=== PATIENT | male | born 1985 | race Caucasian/White ===

== ENCOUNTER 2021-02-25 10:39 | Inpatient (IN) | payer BC ==
[~2021-02-25] VITALS: Ht 180.3 cm; Wt 90.0 kg
[2021-02-25 12:45] LABS: CLARITY,URINE SLIGHTLY CLOUDY (Clear); COLOR,URINE AMBER (Yellow); GLUCOSE, URINE NEGATIVE (Neg); KETONES,URINE TRACE mg/dl (Neg); LEUKOCYTE ESTERASE ,URINE NEGATIVE (Neg); NITRITES, URINE NEGATIVE (Neg); OCCULT BLOOD,URINE NEGATIVE (Neg); PH,URINE 6.5 (4.8-8.0); PROTEIN,URINE 100 mg/dl (Neg)
[2021-02-25 12:46] LABS: BASOPHILS % (AUTO) 0.3 % (0-1); D-DIMER 1.18 MG/L FEU (0-0.50); EOSINOPHILS % (AUTO) 0.5 % (0-6); HEMATOCRIT 45.4 % (42.0-52.0); HEMOGLOBIN 15.6 g/dl (14.0-17.9); LYMPHOCYTES # (AUTO) 0.7 X10'3 (1.1-4.8); LYMPHOCYTES % (AUTO) 10.3 % (21-51); MEAN CORPUSCULAR HEMOGLOBIN 29.6 PG (27.0-31.0); MEAN CORPUSCULAR HGB CONC 34.4 g/dL (33.0-36.5); MEAN CORPUSCULAR VOLUME 86.1 FL (78-98); MEAN PLATELET VOLUME 8.9 FL (7.4-10.4); MONOCYTES # (AUTO) 0.6 X10'3 (0-0.9); MONOCYTES % (AUTO) 8.3 % (2-12); NEUTROPHILS # (AUTO) 5.7 X10'3 (1.8-7.7); NEUTROPHILS % (AUTO) 80.6 % (42-75); PLATELET COUNT 193 X10'3 (140-440); RED BLOOD COUNT 5.27 X10'6 (4.70-6.10); RED CELL DISTRIBUTION WIDTH 12.6 % (11.5-14.5); WHITE BLOOD COUNT 7.1 X10'3 (4.5-11.0)
[2021-02-25 12:51] LABS: UA COLLECTION TYPE NON-SPECIFIED
[2021-02-25 12:57] LABS: MUCUS STRANDS MANY /LPF (Neg); SQUAMOUS EPITHELIAL CELL,UR FEW /LPF (FEW)
[2021-02-25 13:00] LABS: BACTERIA,URINE FEW /HPF (Neg); RBC,URINE 0-2 /HPF (0-2); WBC,URINE 0-4 /HPF (0-4)
[2021-02-25] MEDS ORDERED: dexamethasone inj 8 MG in normal saline 50ml IV soln 50 ML IV STA (13:47)
[2021-02-25] MEDS ORDERED: REMDESIVIR INJ 200 MG in normal saline 100ml IV soln 60 ML IV ONE (13:50)
[2021-02-25 13:55] LABS: ALANINE AMINOTRANSFERASE 52 U/L (12-78); ALBUMIN 3.2 G/DL (3.4-5.0); ALBUMIN/GLOBULIN RATIO 0.7 (1.1-1.5); ALKALINE PHOSPHATASE 93 IU/L (46-116); ANION GAP 11 (8-16); ASPARTATE AMINO TRANSFERASE 37 U/L (10-37); BILIRUBIN,TOTAL 0.5 MG/DL (0.1-1.0); BLOOD UREA NITROGEN 9 MG/DL (7-18); BUN/CREATININE RATIO 9.5 (5.4-32.0); C-REACTIVE PROTEIN 4.91 MG/DL (0.0-0.5); CALCIUM 8.5 MG/DL (8.5-10.1); CHLORIDE 99 MMOL/L (99-107); CREATININE 0.95 MG/DL (0.60-1.10); GLUCOSE 98 MG/DL (70-104); MAGNESIUM 2.3 MG/DL (1.5-2.4); POTASSIUM 3.8 MMOL/L (3.5-5.1); SODIUM 137 MMOL/L (135-145); TOTAL CARBON DIOXIDE 27.3 MMOL/L (24-32); TOTAL PROTEIN 7.5 G/DL (6.4-8.2); eGFR 90 ML/MIN
[2021-02-25] MEDS ORDERED: morphine 2 MG/ML inj. syringe IV PRN ×2 (14:40)
[2021-02-25] MEDS ORDERED: ondansetron/PF 4mg/2ml inj IV PRN (14:40)
[2021-02-25] MEDS ORDERED: HYDROcodone/acetaminophen 10/325mg tab PO PRN (14:40)
[2021-02-25] MEDS ORDERED: HYDROcodone/acetaminophen 5mg/325mg tablet PO PRN (14:40)
[2021-02-25] MEDS ORDERED: mag hydrox/Alum hydrox/simeth 30ml oral suspension PO PRN (14:40)
[2021-02-25] MEDS ORDERED: magnesium hydroxide 30ml (MOM) UD suspension PO PRN (14:40)
[2021-02-25] MEDS ORDERED: acetaminophen 325mg tablet PO PRN ×2 (14:40)
[2021-02-25] MEDS ORDERED: NO HOME MEDS (15:42)
[2021-02-25 16:01] LABS: PHOSPHORUS 2.9 MG/DL (2.3-4.5)
[2021-02-25] MEDS ORDERED: REMDESIVIR 200 MG in NS 100ml IVPB Loading dose IV ONE (16:30)
[2021-02-25] MEDS: docusate sod 100mg capsule PO SCH (20:00)
[2021-02-25] MEDS: dexamethasone sod phosphate 10mg/ml inj IV SCH (20:02)
[2021-02-26 00:47] VITALS: BP 131/77
--- NOTE | 2021-02-26 06:18 | NUR ---
Problems reprioritized. Patient report given, questions answered & plan of care reviewed with YESENIA BRICEÑO.
--- NOTE | 2021-02-26 06:43 | NUR ---
Patient in room COVID 08. I have received report from eva ellis and had the opportunity to ask questions and assume patient care.
[2021-02-26 07:00] VITALS: BP 105/69
[2021-02-26] MEDS: docusate sod 100mg capsule PO SCH ×2 (08:00→19:20)
[2021-02-26] MEDS ORDERED: enoxaparin 30mg/0.3ml syringe SUBCUT SCH (08:00)
[2021-02-26] MEDS: REMDESIVIR 100 MG in NS 100ml IVPB IV SCH (09:15)
[2021-02-26] MEDS: dexamethasone sod phosphate 10mg/ml inj IV SCH ×2 (09:16→19:20)
[2021-02-26 09:53] LABS: BASOPHILS % (AUTO) 0.2 % (0-1); EOSINOPHILS % (AUTO) 0 % (0-6); HEMATOCRIT 44.3 % (42.0-52.0); HEMOGLOBIN 15.1 g/dl (14.0-17.9); LYMPHOCYTES # (AUTO) 0.5 X10'3 (1.1-4.8); LYMPHOCYTES % (AUTO) 13.8 % (21-51); MEAN CORPUSCULAR HEMOGLOBIN 29.2 PG (27.0-31.0); MEAN CORPUSCULAR HGB CONC 34.1 g/dL (33.0-36.5); MEAN CORPUSCULAR VOLUME 85.8 FL (78-98); MEAN PLATELET VOLUME 8.9 FL (7.4-10.4); MONOCYTES # (AUTO) 0.4 X10'3 (0-0.9); MONOCYTES % (AUTO) 11.4 % (2-12); NEUTROPHILS # (AUTO) 2.5 X10'3 (1.8-7.7); NEUTROPHILS % (AUTO) 74.6 % (42-75); PLATELET COUNT 233 X10'3 (140-440); RED BLOOD COUNT 5.16 X10'6 (4.70-6.10); RED CELL DISTRIBUTION WIDTH 12.7 % (11.5-14.5); WHITE BLOOD COUNT 3.3 X10'3 (4.5-11.0)
[2021-02-26 10:06] LABS: ALBUMIN 3.1 G/DL (3.4-5.0); ANION GAP 11 (8-16); BLOOD UREA NITROGEN 11 MG/DL (7-18); BUN/CREATININE RATIO 12.8 (5.4-32.0); CALCIUM 8.5 MG/DL (8.5-10.1); CHLORIDE 101 MMOL/L (99-107); CREATININE 0.86 MG/DL (0.60-1.10); GLUCOSE 119 MG/DL (70-104); POTASSIUM 3.8 MMOL/L (3.5-5.1); SODIUM 140 MMOL/L (135-145); eGFR > 90 ML/MIN
[2021-02-26] MEDS: enoxaparin 40mg/0.4ml syringe SUBCUT SCH (10:44)
[2021-02-26] MEDS: azithromycin/NS 500mg/250ml 250 ML IV SCH (15:50)
[2021-02-26 17:00] VITALS: BP 126/84
--- NOTE | 2021-02-26 18:00 | NUR ---
Patient in room COVID 08. I have received report from mushtaq BRICEÑO and had the opportunity to ask questions and assume patient care.
--- NOTE | 2021-02-26 18:53 | NUR ---
patient appeared comfortable no changes to O2 @5L o2 sats 96%. report given to sebastián BRICEÑO
[2021-02-26 20:00] VITALS: BP 106/58
--- NOTE | 2021-02-26 23:32 | NUR ---
oxygen titrated from 5L to 2 L because patient saturates at 97% on 5L. patient saturates comfortably at 95% on 2L via NC. no ss of resp distress noted.
[2021-02-27 02:00] VITALS: BP 100/68
--- NOTE | 2021-02-27 06:51 | NUR ---
Patient in room COVID 08. I have received report from MAGALY BRICEÑO and had the opportunity to ask questions and assume patient care.
[2021-02-27 07:05] VITALS: BP 112/64
[2021-02-27] MEDS: REMDESIVIR 100 MG in NS 100ml IVPB IV SCH (08:01)
[2021-02-27] MEDS: dexamethasone sod phosphate 10mg/ml inj IV SCH ×2 (08:07→19:47)
[2021-02-27 08:14] LABS: ALBUMIN 2.9 G/DL (3.4-5.0); ANION GAP 12 (8-16); BLOOD UREA NITROGEN 15 MG/DL (7-18); BUN/CREATININE RATIO 14.6 (5.4-32.0); CALCIUM 8.4 MG/DL (8.5-10.1); CHLORIDE 103 MMOL/L (99-107); CREATININE 1.03 MG/DL (0.60-1.10); GLUCOSE 156 MG/DL (70-104); POTASSIUM 3.9 MMOL/L (3.5-5.1); SODIUM 142 MMOL/L (135-145); TOTAL CARBON DIOXIDE 27.5 MMOL/L (24-32); eGFR 82 ML/MIN
[2021-02-27 08:17] LABS: BASOPHILS % (AUTO) 0.1 % (0-1); EOSINOPHILS % (AUTO) 0 % (0-6); HEMOGLOBIN 14.5 g/dl (14.0-17.9); LYMPHOCYTES # (AUTO) 0.7 X10'3 (1.1-4.8); LYMPHOCYTES % (AUTO) 8.1 % (21-51); MEAN CORPUSCULAR HEMOGLOBIN 29.3 PG (27.0-31.0); MEAN CORPUSCULAR HGB CONC 33.7 g/dL (33.0-36.5); MEAN CORPUSCULAR VOLUME 87.1 FL (78-98); MEAN PLATELET VOLUME 8.7 FL (7.4-10.4); MONOCYTES # (AUTO) 0.7 X10'3 (0-0.9); MONOCYTES % (AUTO) 7.6 % (2-12); NEUTROPHILS # (AUTO) 7.3 X10'3 (1.8-7.7); NEUTROPHILS % (AUTO) 84.2 % (42-75); PLATELET COUNT 298 X10'3 (140-440); RED BLOOD COUNT 4.93 X10'6 (4.70-6.10); RED CELL DISTRIBUTION WIDTH 12.7 % (11.5-14.5); WHITE BLOOD COUNT 8.7 X10'3 (4.5-11.0)
[2021-02-27] MEDS: docusate sod 100mg capsule PO SCH ×2 (08:17→19:56)
[2021-02-27] MEDS: enoxaparin 40mg/0.4ml syringe SUBCUT SCH (08:50)
[2021-02-27] MEDS: azithromycin/NS 500mg/250ml 250 ML IV SCH (08:51)
[2021-02-27 10:00] VITALS: BP 117/66
[2021-02-27 13:19] LABS: D-DIMER 0.67 MG/L FEU (0-0.50)
[2021-02-27 15:00] VITALS: BP 123/72
[2021-02-27 19:00] VITALS: BP 121/66
[2021-02-27] MEDS: lactobacillus rhamnosus 10,000 MMU CELLS/CAPSULE PO SCH (19:51)
[2021-02-27 22:00] VITALS: BP 102/61
--- NOTE | 2021-02-28 00:06 | NUR ---
patient up ambulating on RA tolerated well. all cares given . Patient using o2/2L overnight o2 sats 96%. Report given to Yolis BRICEÑO
--- NOTE | 2021-02-28 00:15 | NUR ---
Patient in room COVID 08. I have received report from YESENIA and had the opportunity to ask questions and assume patient care.
[2021-02-28 02:00] VITALS: BP 94/48
[2021-02-28 06:00] VITALS: BP 102/50
--- NOTE | 2021-02-28 06:43 | NUR ---
Patient in room COVID 08. I have received report from NAVARRO Mims and had the opportunity to ask questions and assume patient care.
[2021-02-28] MEDS: REMDESIVIR 100 MG in NS 100ml IVPB IV SCH (08:19)
[2021-02-28] MEDS: lactobacillus rhamnosus 10,000 MMU CELLS/CAPSULE PO SCH ×2 (08:19→21:47)
[2021-02-28] MEDS: dexamethasone sod phosphate 10mg/ml inj IV SCH ×2 (08:19→20:00)
[2021-02-28] MEDS: enoxaparin 40mg/0.4ml syringe SUBCUT SCH (08:19)
[2021-02-28] MEDS: docusate sod 100mg capsule PO SCH ×2 (08:19→21:47)
[2021-02-28 09:43] LABS: ANION GAP 8 (8-16); BLOOD UREA NITROGEN 16 MG/DL (7-18); BUN/CREATININE RATIO 16.8 (5.4-32.0); CALCIUM 8.3 MG/DL (8.5-10.1); CHLORIDE 104 MMOL/L (99-107); CREATININE 0.95 MG/DL (0.60-1.10); GLUCOSE 119 MG/DL (70-104); SODIUM 141 MMOL/L (135-145); TOTAL CARBON DIOXIDE 29.2 MMOL/L (24-32); eGFR 90 ML/MIN
[2021-02-28 09:47] LABS: BASOPHILS % (AUTO) 0 % (0-1); EOSINOPHILS % (AUTO) 0 % (0-6); HEMATOCRIT 43.3 % (42.0-52.0); HEMOGLOBIN 14.7 g/dl (14.0-17.9); LYMPHOCYTES # (AUTO) 0.9 X10'3 (1.1-4.8); LYMPHOCYTES % (AUTO) 8.6 % (21-51); MEAN CORPUSCULAR HEMOGLOBIN 29.6 PG (27.0-31.0); MEAN CORPUSCULAR HGB CONC 33.9 g/dL (33.0-36.5); MEAN CORPUSCULAR VOLUME 87.4 FL (78-98); MEAN PLATELET VOLUME 8.8 FL (7.4-10.4); MONOCYTES # (AUTO) 0.7 X10'3 (0-0.9); MONOCYTES % (AUTO) 7.5 % (2-12); NEUTROPHILS # (AUTO) 8.3 X10'3 (1.8-7.7); NEUTROPHILS % (AUTO) 83.9 % (42-75); PLATELET COUNT 338 X10'3 (140-440); RED BLOOD COUNT 4.96 X10'6 (4.70-6.10); RED CELL DISTRIBUTION WIDTH 12.1 % (11.5-14.5); WHITE BLOOD COUNT 9.9 X10'3 (4.5-11.0)
[2021-02-28] MEDS: azithromycin/NS 500mg/250ml 250 ML IV SCH (09:53)
[2021-02-28 10:00] VITALS: BP 107/63
[2021-02-28 14:00] VITALS: BP 124/77
[2021-02-28] MEDS ORDERED: METH4TAB81 PO (14:17)
[2021-02-28] MEDS ORDERED: AZIT500T9 PO (14:17)
--- NOTE | 2021-02-28 18:05 | NUR ---
Pt transported to 402, via wheelchair, with all belongings.
--- NOTE | 2021-02-28 18:37 | NUR ---
Problems reprioritized. Patient report given, questions answered & plan of care reviewed with NAVARRO Gregg.
--- NOTE | 2021-02-28 18:39 | NUR ---
Patient in room COVID 08. I have received report from Keyonna BRICEÑO and had the opportunity to ask questions and assume patient care.
[2021-02-28 20:00] VITALS: BP 128/80
[2021-02-28 22:00] VITALS: BP 124/77
--- NOTE | 2021-03-01 00:22 | NUR ---
Problems reprioritized. Patient report given, questions answered & plan of care reviewed with Kayla BRICEÑO.
--- NOTE | 2021-03-01 00:30 | NUR ---
Assumed care of pt at this time report from Marsyol BRICEÑO.
[2021-03-01 02:00] VITALS: BP 115/71
--- NOTE | 2021-03-01 06:27 | NUR ---
Report to Justyna BRICEÑO.
[2021-03-01 08:00] LABS: BASOPHILS % (AUTO) 0.1 % (0-1); EOSINOPHILS % (AUTO) 0 % (0-6); HEMATOCRIT 44.9 % (42.0-52.0); HEMOGLOBIN 15.2 g/dl (14.0-17.9); LYMPHOCYTES % (AUTO) 8.3 % (21-51); MEAN CORPUSCULAR HEMOGLOBIN 29.1 PG (27.0-31.0); MEAN CORPUSCULAR VOLUME 85.6 FL (78-98); MEAN PLATELET VOLUME 8.5 FL (7.4-10.4); MONOCYTES # (AUTO) 0.9 X10'3 (0-0.9); NEUTROPHILS # (AUTO) 9.7 X10'3 (1.8-7.7); NEUTROPHILS % (AUTO) 83.6 % (42-75); PLATELET COUNT 369 X10'3 (140-440); RED BLOOD COUNT 5.25 X10'6 (4.70-6.10); RED CELL DISTRIBUTION WIDTH 12.6 % (11.5-14.5); WHITE BLOOD COUNT 11.6 X10'3 (4.5-11.0)
[2021-03-01] MEDS: docusate sod 100mg capsule PO SCH (08:00)
[2021-03-01 08:23] LABS: ALBUMIN 3.3 G/DL (3.4-5.0); ANION GAP 9 (8-16); BLOOD UREA NITROGEN 17 MG/DL (7-18); BUN/CREATININE RATIO 18.5 (5.4-32.0); CALCIUM 8.7 MG/DL (8.5-10.1); CHLORIDE 105 MMOL/L (99-107); CREATININE 0.92 MG/DL (0.60-1.10); GLUCOSE 115 MG/DL (70-104); SODIUM 142 MMOL/L (135-145); TOTAL CARBON DIOXIDE 27.9 MMOL/L (24-32); eGFR > 90 ML/MIN
[2021-03-01] MEDS: REMDESIVIR 100 MG in NS 100ml IVPB IV SCH (11:16)
[2021-03-01] MEDS: enoxaparin 40mg/0.4ml syringe SUBCUT SCH (11:17)
[2021-03-01] MEDS: dexamethasone sod phosphate 10mg/ml inj IV SCH (11:17)
[2021-03-01] MEDS: lactobacillus rhamnosus 10,000 MMU CELLS/CAPSULE PO SCH (12:36)
[2021-03-01] MEDS: azithromycin/NS 500mg/250ml 250 ML IV SCH (12:37)
--- NOTE | 2021-03-01 13:13 | NUR ---
PAGER ID: [phone] MESSAGE: [id number], Miguel Angel has been getting lovenox 40 daily, do you want to discharge on any aspirin? [email or web address] [phone]
== END 2021-03-01 14:05 | disposition home or self-care (01) | DRG 177 ==
LOC: ER 10:39 → ED HOLD 14:46 → EDBEDREQ 23:01 → COVID IP 02-26 00:53 → ORTHO 4S 02-28 18:00
PROVIDERS: ADMIT Internal Medicine; ATTEND Internal Medicine
PROC: XW033E5 Introduction of Remdesivir Anti-infective into Peripheral Vein, Percutaneous Approach, New Technology Group 5 (ICD-10-PCS; principal; 2021-02-25)
PROC: B32T1ZZ Computerized Tomography (CT Scan) of Left Pulmonary Artery using Low Osmolar Contrast (ICD-10-PCS; 2021-02-25)
PROC: B3201ZZ Computerized Tomography (CT Scan) of Thoracic Aorta using Low Osmolar Contrast (ICD-10-PCS; 2021-02-25)
PROC: B32S1ZZ Computerized Tomography (CT Scan) of Right Pulmonary Artery using Low Osmolar Contrast (ICD-10-PCS; 2021-02-25)
DX: U07.1 COVID-19 (principal); J12.82 Pneumonia due to coronavirus disease 2019; J96.01 Acute respiratory failure with hypoxia; F12.90 Cannabis use, unspecified, uncomplicated; Z78.9 Other specified health status
CPT/HCPCS: 36415; 71045; 71275; 80048; 80053; 81001; 83605; 83735; 83880; 84100; 84145; 85025; 85379; 86140; 87040; 87635; 93005; 99285; C9803; G0378; J0456; J1100; J1650